=== PATIENT | female | born 1990 | race Two or more races ===

== ENCOUNTER 2019-11-29 14:00 | Inpatient (IN) | payer OTHER ==
[~2019-11-29] VITALS: Ht 170.2 cm; Wt 79.8 kg
[2019-12-11] MEDS ORDERED: PRENATAL + DHA1 EAC1 PO (12:12)
== END 2019-12-13 13:35 | disposition home or self-care (01) | DRG 807 ==
LOC: OB/GYN 12-08 14:00 → LDR 12-11 10:46 → OB/GYN 12-11 14:00
PROVIDERS: ADMIT Obstetrics & Gynecology
PROC: 10E0XZZ Delivery of Products of Conception, External Approach (ICD-10-PCS; principal; 2019-12-11)
PROC: 0HQ9XZZ Repair Perineum Skin, External Approach (ICD-10-PCS; 2019-12-11)
PROC: 3E033VJ Introduction of Other Hormone into Peripheral Vein, Percutaneous Approach (ICD-10-PCS; 2019-12-11)
PROC: 4A1HXFZ Monitoring of Products of Conception, Cardiac Rhythm, External Approach (ICD-10-PCS; 2019-12-11)
PROC: 10E0XZZ Delivery of Products of Conception, External Approach (ICD-10-PCS; 2019-12-11)
PROC: 4A033R1 Measurement of Arterial Saturation, Peripheral, Percutaneous Approach (ICD-10-PCS; 2019-12-11)
DX: O70.0 First degree perineal laceration during delivery (principal); Z37.0 Single live birth; Z3A.39 39 weeks gestation of pregnancy

== ENCOUNTER 2021-12-11 14:45 | Inpatient (IN) | payer OTHER ==
[~2021-12-11] VITALS: Ht 170.2 cm; Wt 88.5 kg
[~2021-12-11 14:45] MED LIST: PRENATAL + DHA1 EAC1 PO
== END 2021-12-28 14:55 | disposition home or self-care (01) | DRG 807 ==
LOC: SURH 12-19 14:45 → LDR 12-26 05:23 → SURG-SUITE 12-26 08:02
PROVIDERS: ADMIT Obstetrics & Gynecology; ATTEND Obstetrics & Gynecology
PROC: 10E0XZZ Delivery of Products of Conception, External Approach (ICD-10-PCS; principal; 2021-12-26)
PROC: 4A1HXCZ Monitoring of Products of Conception, Cardiac Rate, External Approach (ICD-10-PCS; 2021-12-26)
PROC: 0HQ9XZZ Repair Perineum Skin, External Approach (ICD-10-PCS; 2021-12-26)
DX: O70.0 First degree perineal laceration during delivery (principal); Z37.0 Single live birth; Z3A.40 40 weeks gestation of pregnancy

== ENCOUNTER 2021-12-19 18:15 | Outpatient (CLI) | payer OTHER | END 2021-12-19 18:39 | disposition home or self-care (01) | LOC: OBS/DEL 18:15 | PROVIDERS: ATTEND Obstetrics & Gynecology | DX: O47.03 False labor before 37 completed weeks of gestation, third trimester (principal); Z3A.39 39 weeks gestation of pregnancy ==